=== PATIENT | male | born 1975 | race Caucasian/White ===

== ENCOUNTER 2016-11-30 11:56 | Emergency (ER) | payer MEDICAID, OTHER ==
[~2016-11-30] VITALS: Ht 188 cm; Wt 150.0 kg
[2016-11-30 11:59] VITALS: BP 164/96; PULSE 96; RESP 22; TEMP 97.7; O2SAT 98
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
[2016-11-30] MEDS ORDERED: ONDANSETRON HCL 4 MG/2 ML VIAL IV PUSH ONE (13:00)
[2016-11-30] MEDS ORDERED: MORPHINE SULFATE 4 MG/ML INJ IV PUSH ONE ×2 (13:00→15:00)
--- NOTE | 2016-11-30 13:45 | RADRPT ---
EXAM DATE/TIME: 11/30/2016 13:12 [facility] COMPARISON: No previous studies available for comparison. INDICATIONS : Fall from ladder. Left wrist fracture. MEDICAL HISTORY : None. SURGICAL HISTORY : None. ENCOUNTER: Initial ACUITY: 1 day PAIN SCORE: 9/10 LOCATION: Left wrist FINDINGS: 3 views of the left wrist demonstrate a comminuted displaced fracture of the distal radial metaphysis with dorsal displacement of the distal fragment by approximately 1/2 shaft width. Fracture line exte nds into the radiocarpal joint and the ulnar styloid fragment is also mildly displaced laterally. The re is also a displaced ulnar styloid fracture that is displaced by 4 mm. No carpal bone fracture is i dentified but scapholunate distance measures up to 5 mm. There is soft tissue swelling. No radiopaque foreign body is seen. CONCLUSION: 1. There is a mildly comminuted fracture of the distal radial metaphysis with posterior displacement of the distal fragment. Fracture line extends into the radiocarpal joint. 2. There is a displaced ulnar styloid fracture. 3. Scapholunate distance measures up to 5 mm. This raises suspicion for scapholunate ligament disrupt ion. Alexis Fraga MD on November 30, 2016 at 13:42 Board Certified Radiologist. This report was verified electronically.
--- NOTE | 2016-11-30 13:55 | PD ---
Physical Exam Time Seen by Provider: 13:45 Narrative Care was assumed pending CT and x-ray imaging. This patient fell off a ladder, 4.5 feet off the ground, onto the concrete below. He has pain in his left wrist , left foot and heel, abrasion and contusion to the anterior abdomen. The pain is worst in the left wrist. Pain is an aching pain which is constant and worse with movement. Denies any head injury, neck or back pain, nausea or vomiting, chest pain or shortness of breath. GENERAL: Well-nourished male in no acute distress SKIN: Warm and dry. Abrasions and contusion to the anterior right abdomen. Abrasions to the anterior left knee. HEAD: Atraumatic. Normocephalic. EYES: Pupils equal and round. No scleral icterus. No injection or drainage. ENT: No nasal bleeding or discharge. Mucous membranes pink and moist. NECK: Trachea midline. No JVD. CARDIOVASCULAR: Regular rate and rhythm. No murmur appreciated. RESPIRATORY: No accessory muscle use. Clear to auscultation. Breath sounds equal bilaterally. GASTROINTESTINAL: Skin as noted above. Abdomen is soft. Mild tenderness to palpation to the right lower abdomen region. MUSCULOSKELETAL: Some soft tissue swelling noted to the left wrist. Tender to palpation generalized to left wrist. Range of motion limited. Distal sensation and pulses are intact. Ring on the left fourth finger. Some tenderness to palpation to the lateral left lower heel. NEUROLOGICAL: Awake and alert. No obvious cranial nerve deficits. Motor grossly within normal limits. Normal speech. PSYCHIATRIC: Appropriate mood and affect; insight and judgment normal. Data Data Last Documented VS Vital Signs Date Time Temp Pulse Resp B/P Pulse Ox O2 Delivery O2 Flow Rate FiO2 11/30/16 15:49 98.3 80 16 142/66 95 Room Air Orders Morphine Inj (Morphine Inj) (11/30/16 13:00) Ondansetron Inj (Zofran Inj) (11/30/16 13:00) Complete Blood Count With Diff (11/30/16 12:51) Comprehensive Metabolic Panel (11/30/16 12:51) Wrist, Complete ([id number]) (11/30/16 ) Forearm (2vws) (11/30/16 ) Tibia/Fibula (Ap/Lat) (11/30/16 ) Foot, Complete ([id number]) (11/30/16 ) Ct Abd/Pel W Iv Contrast(Rout) (11/30/16 ) Iv Access Insert/Monitor (11/30/16 12:53) Splint Or Brace Apply/Monitor (11/30/16 13:56) Hydromorphone Pf Inj (Dilaudid Pf Inj) (11/30/16 15:00) Morphine Inj (Morphine Inj) (11/30/16 15:00) Wrist, Limited (Ap&Lat) (11/30/16 ) Ct Wrist W/O Contrast (11/30/16 ) Foot, Heel Only ([id number]) (11/30/16 ) Fiberglass Sugartong Sp Ad Arm (11/30/16 ) Sling Cradle Arm (11/30/16 ) Iohexol 350 Inj (Omnipaque 350 Inj) (11/30/16 16:43) Hydromorphone Pf Inj (Dilaudid Pf Inj) (11/30/16 17:00) Crutches (11/30/16 17:07) Labs Laboratory Tests Test 11/30/16 14:10 White Blood Count 15.4 TH/MM3 Red Blood Count 5.08 MIL/MM3 Hemoglobin 13.8 GM/DL Hematocrit 41.5 % Mean Corpuscular Volume 81.7 FL Mean Corpuscular Hemoglobin 27.1 PG Mean Corpuscular Hemoglobin 33.2 % Concent Red Cell Distribution Width 13.7 % Platelet Count 240 TH/MM3 Mean Platelet Volume 8.7 FL Neutrophils (%) (Auto) 80.1 % Lymphocytes (%) (Auto) 11.7 % Monocytes (%) (Auto) 7.1 % Eosinophils (%) (Auto) 0.8 % Basophils (%) (Auto) 0.3 % Neutrophils # (Auto) 12.3 TH/MM3 Lymphocytes # (Auto) 1.8 TH/MM3 Monocytes # (Auto) 1.1 TH/MM3 Eosinophils # (Auto) 0.1 TH/MM3 Basophils # (Auto) 0.0 TH/MM3 CBC Comment DIFF FINAL Differential Comment Sodium Level 142 MEQ/L Potassium Level 4.0 MEQ/L Chloride Level 106 MEQ/L Carbon Dioxide Level 29.2 MEQ/L Anion Gap 7 MEQ/L Blood Urea Nitrogen 11 MG/DL Creatinine 1.03 MG/DL Estimat Glomerular Filtration 80 ML/MIN Rate Random Glucose 106 MG/DL Calcium Level 8.6 MG/DL Total Bilirubin 0.2 MG/DL Aspartate Amino Transf 25 U/L (AST/SGOT) Alanine Aminotransferase 44 U/L (ALT/SGPT) Alkaline Phosphatase 89 U/L Total Protein 7.7 GM/DL Albumin 3.5 GM/DL [facility] Medical Record Reviewed: Yes Supervised Visit with TOBY: No Interpretation(s) Left wrist x-ray reveals a comminuted fracture of the distal radius with posterior displacement, extending into the radiocarpal joint, ulnar styloid fracture, scapholunate ligament disruption Narrative Course The patient has a ring on his left fourth finger. His wrist is becoming swollen from the fall. Wrist x-ray does confirm a left wrist fracture. I was unable to remove the ring from his left fourth finger using gel. He says that the finger has been too small for his fingers for several years. He is agreeing to have the ring cut off. The ring was cut off successfully. Wrist x- ray reveals a complicated left wrist fracture. Sugar tong splint has been ordered. Discussed with my attending who agrees with plan of care. I discussed results of the x-ray with orthopedist donor recruitment manager Dr. Wells who recommends consult thing the hand surgeon donor recruitment manager regarding the injury. I discussed with a hand surgeon Dr. Sage who reviewed the images and would like a right wrist x-ray to be performed to compare the scapholunate distances. He would also like a dedicated CT of the wrist and he would like the patient to follow-up in his office in 3 days to plan operative services as an outpatient. He would like a sugar tong splint to be placed. 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 The patient required several doses of IV pain medication during his hospital stay. I'm concerned because the patient is having difficulty ambulating secondary to his left lower leg pain. Therefore I offered the patient the possibility of being admitted for observation for intractable pain and physical therapy consultation that he is declining at this time. He will try to rest at home and then see the hand surgeon on Tuesday as discussed. This seems reasonable. He is encouraged to return at any time if he has too much difficulty at home. He is stable for discharge. Diagnosis Primary Impression: Left wrist fracture Qualified Code: S62.102A - Left wrist fracture, closed, initial encounter Additional Impression: Abrasions of multiple sites Referrals: Abdullahi Sage III, MD Additional Instruction: Follow-up with Dr. Sage on Tuesday in 3 days, call his office to make an appointment. Do not remove the splint. Medication as needed. Rest. Crutches as needed. Return for any new or worsening symptoms. Med/Other Pt SpecificInfo: Prescription(s) given, Orthopedic Instructions Scripts Folding Walker/5" Wheels 1 Mis Mis #1 Ea .route As Directed Prov:Beatriz Smiley DO 11/30/16 Ondansetron (Zofran)4 Mg Tab4 Mg PO Q6HR PRN (NAUSEA OR VOMITING) #20 TAB Ref 0 Prov:Beatriz Smiley DO 11/30/16 Oxycodone-Acetaminophen (Percocet)5-325 mg Tab1 Tab PO Q6H PRN (PAIN) #20 TAB Ref 0 Prov:Beatriz Smiley DO 11/30/16 Disposition: 01 DISCHARGE HOME Condition: Stable Piotr Martinez Nov 30, 2016 13:55
--- NOTE | 2016-11-30 14:06 | RADRPT ---
EXAM DATE/TIME: 11/30/2016 13:18 [facility] COMPARISON: No previous studies available for comparison. INDICATIONS : Fall from ladder. Left forearm pain. MEDICAL HISTORY : None. SURGICAL HISTORY : None. ENCOUNTER: Initial ACUITY: 1 day PAIN SCORE: 9/10 LOCATION: Left distal forearm FINDINGS: Two view examination of the left forearm demonstrates a compacted displaced fracture of the distal ra dius extending into the articulating surface of the radiocarpal joint. There is avulsion fracture of the ulnar styloid. Mild separation of the scaphoid and lunate carpal bones are noted. Left radius and ulnar shafts are intact. CONCLUSION: Compacted comminuted fracture of the distal left radius extending into the radiocarpal joint. Possible scapholunate ligament disruption. Avulsion fracture of the ulnar styloid. Lamine Oliva MD on November 30, 2016 at 14:03 Board Certified Radiologist. This report was verified electronically.
--- NOTE | 2016-11-30 14:07 | RADRPT ---
EXAM DATE/TIME: 11/30/2016 13:24 [facility] COMPARISON: No previous studies available for comparison. INDICATIONS : Fall from ladder. Left lower leg pain. MEDICAL HISTORY : None. SURGICAL HISTORY : None. ENCOUNTER: Initial ACUITY: 1 day PAIN SCORE: 5/10 LOCATION: Left distal tib/fib FINDINGS: Two view examination of the left tibia demonstrates no evidence of fracture or dislocation. Bony min eralization is normal. Generalized soft tissue swelling in the calf is noted. CONCLUSION: Soft tissue swelling without evidence of acute fracture or dislocation. Lamine Oliva MD on November 30, 2016 at 14:05 Board Certified Radiologist. This report was verified electronically.
--- NOTE | 2016-11-30 14:08 | RADRPT ---
EXAM DATE/TIME: 11/30/2016 13:33 [facility] COMPARISON: No previous studies available for comparison. INDICATIONS : Fall from ladder. Left foot pain. MEDICAL HISTORY : None. SURGICAL HISTORY : None. ENCOUNTER: Initial ACUITY: 1 day PAIN SCORE: 7/10 LOCATION: Left foot, calcaneous FINDINGS: Three view examination of the left foot demonstrates no soft tissue swelling, dislocation, or fractur e. The tarsal bones appear intact. The interphalangeal and metatarsophalangeal joints are intact. The calcaneus is intact. Bony mineralization is normal. CONCLUSION: No acute disease. Lamine Oliva MD on November 30, 2016 at 14:06 Board Certified Radiologist. This report was verified electronically.
[2016-11-30 14:19] LABS: AUTOMATED NEUTROPHIL # 12.3 TH/MM3 (1.8-7.7); BASOPHIL % 0.3 % (0.0-2.0); EOSINOPHIL # 0.1 TH/MM3 (0-0.4); EOSINOPHIL % 0.8 % (0.0-4.0); HEMATOCRIT 41.5 % (39.0-51.0); HEMO FLAGS DIFF FINAL; LYMPH % 11.7 % (9.0-44.0); LYMPHOCYTE # 1.8 TH/MM3 (1.0-4.8); MEAN CELL VOLUME 81.7 FL (80.0-100.0); MEAN CORPUSCULAR HEMOGLOBIN 27.1 PG (27.0-34.0); MEAN CORPUSCULAR HGB CONC 33.2 % (32.0-36.0); MONO % 7.1 % (0.0-8.0); NEUT % 80.1 % (16.0-70.0); PLATELET COUNT 240 TH/MM3 (150-450); RED BLOOD COUNT 5.08 MIL/MM3 (4.50-5.90); RED CELL DISTRIBUTION WIDTH 13.7 % (11.6-17.2); WHITE BLOOD COUNT 15.4 TH/MM3 (4.0-11.0)
[2016-11-30 14:43] LABS: ALKALINE PHOSPHATASE 89 U/L (45-117); ALT (GPT) 44 U/L (12-78); ANION GAP 7 MEQ/L (5-15); AST (GOT) 25 U/L (15-37); BICARBONATE 29.2 MEQ/L (21.0-32.0); BLOOD UREA NITROGEN 11 MG/DL (7-18); CHLORIDE 106 MEQ/L (98-107); GLOMERULAR FILTRATION RATE 80 ML/MIN (>89); SODIUM (NA) 142 MEQ/L (136-145); TOTAL BILIRUBIN ADULT 0.2 MG/DL (0.2-1.0)
[2016-11-30] MEDS ORDERED: HYDROmorphone HCL PF 1 MG/ML VIAL IV PUSH ONE ×2 (15:00→17:00)
--- NOTE | 2016-11-30 15:38 | RADRPT ---
EXAM DATE/TIME: 11/30/2016 15:17 [facility] COMPARISON: No previous studies available for comparison. INDICATIONS : Fall from ladder. MEDICAL HISTORY : None. SURGICAL HISTORY : None. ENCOUNTER: Initial ACUITY: 1 day PAIN SCORE: 5/10 LOCATION: Left heel FINDINGS: Two view examination of the left heel demonstrates the trabecula to be intact with no evidence of fra cture. There is a normal calcaneal angle. The soft tissues are of normal thickness. CONCLUSION: No acute abnormality is identified. Alexis Fraga MD on November 30, 2016 at 15:36 Board Certified Radiologist. This report was verified electronically.
--- NOTE | 2016-11-30 15:42 | RADRPT ---
EXAM DATE/TIME: 11/30/2016 15:20 [facility] COMPARISON: WRIST LEFT COMPLETE ([id number]), November 30, 2016, 13:12. INDICATIONS : Right wrist comparison for left wrist scapholunate widening. MEDICAL HISTORY : None. SURGICAL HISTORY : None. ENCOUNTER: Initial ACUITY: 1 day PAIN SCORE: 0/10 LOCATION: Right wrist FINDINGS: Two view examination of the right wrist demonstrates soft tissue swelling without dislocation, or fra cture. The joint spaces are maintained. Bony mineralization is normal. The scapholunate distance a ppears within normal range. CONCLUSION: Soft tissue swelling without fracture. Alden Drake MD on November 30, 2016 at 15:37 Board Certified Radiologist. This report was verified electronically.
[2016-11-30 15:49] VITALS: BP 142/66; PULSE 80; RESP 16; TEMP 98.3; O2SAT 95
[2016-11-30] MEDS ORDERED: IOHEXOL 350 MG/ML 10 ML VIAL (for RAD DIAG) IV ONE (16:43)
--- NOTE | 2016-11-30 16:56 | RADRPT ---
EXAM DATE/TIME: 11/30/2016 16:35 [facility] COMPARISON: No previous studies available for comparison. INDICATIONS : Fell on concrete today; left sided pain. IV CONTRAST: 96 cc Omnipaque 350 (iohexol) IV ORAL CONTRAST: No oral contrast ingested. RADIATION DOSE: 16.94 CTDIvol (mGy) MEDICAL HISTORY : None SURGICAL HISTORY : None. ENCOUNTER: Initial ACUITY: 1 day PAIN SCALE: 7/10 LOCATION: Left Abdomen/pelvis TECHNIQUE: Volumetric scanning of the abdomen and pelvis was performed. Using automated exposure control and ad justment of the mA and/or kV according to patient size, radiation dose was kept as low as reasonably achievable to obtain optimal diagnostic quality images. FINDINGS: LOWER LUNGS: The visualized lower lungs are clear. LIVER: The liver is diffusely hypodense. There are no focal lesions. There is no dilation of the biliary tr ee. Post cholecystectomy clips. SPLEEN: Normal size without lesion. PANCREAS: Within normal limits. KIDNEYS: Normal in size and shape. There is no mass, stone or hydronephrosis. ADRENAL GLANDS: Within normal limits. VASCULAR: There is no aortic aneurysm. BOWEL/MESENTERY: The stomach, small bowel, and colon demonstrate no acute abnormality. There is no free intraperitone al air or fluid. ABDOMINAL WALL: Within normal limits. RETROPERITONEUM: There is no lymphadenopathy. BLADDER: No wall thickening or mass. REPRODUCTIVE: Within normal limits. INGUINAL: There is no lymphadenopathy or hernia. MUSCULOSKELETAL: Within normal limits for patient age. CONCLUSION: Hepatic steatosis Status post cholecystectomy No evidence of acute process. Lamine Oliva MD on November 30, 2016 at 16:51 Board Certified Radiologist. This report was verified electronically.
--- NOTE | 2016-11-30 17:00 | RADRPT ---
EXAM DATE/TIME: 11/30/2016 16:46 [facility] COMPARISON: WRIST LEFT COMPLETE ([id number]), November 30, 2016, 13:12. WRIST RIGHT LIMITED(AP & LAT), November 30, 2016, 15:20. INDICATIONS : Fall on concrete; left wrist pain. RADIATION DOSE: ; Reconstructed from previous dataset MEDICAL HISTORY : None SURGICAL HISTORY : None. ENCOUNTER: Initial ACUITY: 1 day PAIN SCALE: 6/10 LOCATION: Left Wrist TECHNIQUE: Volumetric scanning of the wrist was performed. Using automated exposure control and adjustment of t he mA and/or kV according to patient size, radiation dose was kept as low as reasonably achievable to obtain optimal diagnostic quality images. FINDINGS: BONES: Comminuted fracture of distal radius. Many of these fragments are dislocated posteriorly. There is in tra-articular extension. Ulnar styloid fracture also seen. Slight widening of the scapholunate distan ce measures approximately 4 mm. SOFT TISSUES: Extensive soft tissue swelling/contusion. No evidence of mass, organized fluid collection or foreign body. Joints otherwise appear intact. CONCLUSION: 1. Comminuted fracture distal radius with intra-articular extension. 2. Ulnar styloid fracture. 3. Slight widening of the scapholunate distance. Alden Drake MD on November 30, 2016 at 16:55 Board Certified Radiologist. This report was verified electronically.
[2016-11-30] MEDS ORDERED: PERC5TAB12 PO (17:10)
[2016-11-30] MEDS ORDERED: ZOFR4TAB PO (17:10)
[2016-11-30] MEDS ORDERED: MISC-274 (17:29)
[2016-11-30 17:30] VITALS: RESP 18
== END 2016-11-30 18:07 | disposition home or self-care (01) ==
LOC: NEPB 11:56 → NEPE 18:07
DX: S52.502A Unspecified fracture of the lower end of left radius, initial encounter for closed fracture (principal); M79.672 Pain in left foot; S80.212A Abrasion, left knee, initial encounter; W11.XXXA Fall on and from ladder, initial encounter; Y99.0 Civilian activity done for income or pay
CPT/HCPCS: 73090; 73100; 73110; 73200; 73590; 73630; 73650; 74177; 80053; 85025; 96374; 96375; 96376; 99284; E0113; J1170; J2270; J2405; Q9967

== ENCOUNTER 2016-12-18 15:21 | Emergency (ER) | payer MEDICAID, OTHER ==
[~2016-12-18] VITALS: Ht 188 cm; Wt 176.0 kg
[~2016-12-18 15:21] MED LIST: MISC-274; PERC5TAB12 PO; ZOFR4TAB PO
[2016-12-18 15:30] VITALS: BP 156/109; PULSE 88; RESP 17; TEMP 97.9; O2SAT 96
[2016-12-18] MEDS ORDERED: SULFAMETHOXAZOLE-TRIMETHOPRIM DS 800-160 MG TAB PO ONE (16:15)
[2016-12-18] MEDS ORDERED: DOXYCYCLINE HYCLATE 100 MG CAP PO ONE (16:15)
--- NOTE | 2016-12-18 16:23 | PD ---
HPI Chief Complaint: Wound/Suture/Staple Re-Check Time Seen by Provider: 16:00 Travel History International Travel<30 days: No Contact w/Intl Traveler<30days: No Traveled to known affect area: No History of Present Illness HPI 41-year-old male presents to emergency department status post open reduction and fixation of the left wrist status post Worker's Comp. injury to the left wrist which occurred on 11/30/2016. Patient underwent surgery with Dr. Acuña 3 days prior to this visit. Patient came in because he is concerned about possible infection as he's had some drainage from around the metal fixator which is present, and ongoing swelling of the hand. Patient has had no fevers or chills. He is not taking any antibiotics currently. He is currently taking Percocet and ibuprofen. He has no other real complaints other than a sign of bowel movement since the surgery. He denies abdominal pain. He has no known drug allergies. PFSH Past Medical History Diminished Hearing: No Hypertension: Yes Tetanus Vaccination: < 5 Years Influenza Vaccination: No ?: Not Past Surgical History Cholecystectomy: Yes Social History Alcohol Use: No Tobacco Use: No Substance Use: No Allergies-Medications (Allergen,Severity, Reaction): Coded Allergies: No Known Allergies (Unverified , 12/18/16) Reported Meds & Prescriptions Reported Meds & Active Scripts Active Folding Walker/5" Wheels (Device) 1 Mis Mis 1 Ea .ROUTE DIRECTED Zofran (Ondansetron HCl) 4 Mg Tab 4 Mg PO Q6HR PRN Percocet (Oxycodone-Acetaminophen) 5-325 mg Tab 1 Tab PO Q6H PRN Review of Systems Except as stated in HPI: all other systems reviewed are Neg General / Constitutional: No: Fever Eyes: No: Visual changes HENT: No: Headaches Cardiovascular: No: Chest Pain or Discomfort Respiratory: No: Shortness of Breath Gastrointestinal: No: Abdominal Pain Genitourinary: No: Dysuria Musculoskeletal: No: Pain Skin: No Rash Neurologic: No: Weakness Psychiatric: No: Depression Endocrine: No: Polydipsia Hematologic/Lymphatic: No: Easy Bruising Physical Exam Narrative GENERAL: Patient appears in no acute distress. SKIN: Warm and dry. Normal color. Normal turgor. The dressing around the left forearm and wrist are removed down to the Xeroform gauze surrounding the external fixator as well as the vision to the volar forearm. There is no sign of cellulitis or induration or drainage at this time. There is no erythema or warmth. There is no streaking or lymphangitis. HEAD: Atraumatic. Normocephalic. EYES: Pupils equal and round. No scleral icterus. No injection or drainage. ENT: No nasal bleeding or discharge. Mucous membranes pink and moist. Pharynx is clear. NECK: Trachea midline. Neck is supple nontender. CARDIOVASCULAR: Regular rate and rhythm. RESPIRATORY: No accessory muscle use. Clear to auscultation. Breath sounds equal bilaterally. GASTROINTESTINAL: Abdomen soft, non-tender, nondistended. Hepatic and splenic margins not palpable. Normal bowel sounds are present throughout all quadrants. MUSCULOSKELETAL: Extremities without clubbing, cyanosis, or edema. Left hand is swollen consistent with patient's injury and surgical history. Patient has normal neurovascular exam of the left hand, and is able to make a fist without difficulty. NEUROLOGICAL: Awake and alert. No obvious cranial nerve deficits. Motor grossly within normal limits. Five out of 5 muscle strength in the arms and legs. Normal speech. PSYCHIATRIC: Appropriate mood and affect; insight and judgment normal. Data Data Last Documented VS Vital Signs Date Time Temp Pulse Resp B/P Pulse Ox O2 Delivery O2 Flow Rate FiO2 12/18/16 15:30 97.9 88 17 156/109 96 Orders Doxycycline (Vibramycin) (12/18/16 16:15) Sulfamet-Trimeth Ds 800-160 Mg (Bactrim (12/18/16 16:15) MDM Medical Decision Making Medical Screen Exam Complete: Yes Emergency Medical Condition: Yes Medical Record Reviewed: Yes Differential Diagnosis Workplace injury. Left wrist fracture. Recent orthopedic surgery to the left wrist and forearm. Question cellulitis. Narrative Course Patient is medically stable at time of exam. Call was placed to Dr. Acuña's office and I spoke with Yusuf Paige PAC covering for call. The patient was discussed and he recommended place the patient on Bactrim and doxycycline for the next 2 weeks until the patient is seen in follow-up on December 31 as scheduled. The dressing and splint was replaced to the patient's left wrist and forearm as previous. This is to remain in place until seen in follow-up. Patient is continue his Percocet and ibuprofen as needed. I recommended the patient start using a stool softener such as MiraLAX for his constipation. Patient should follow-up with Dr. Acuña's office as currently scheduled or return to emergency department as needed when necessary. Diagnosis Primary Impression: Left wrist fracture Qualified Code: S62.102D - Left wrist fracture, with routine healing, subsequent encounter Patient Instructions: Constipation (ED), General Instructions, How to Use a Sling (GEN), Splint Care (DC) Additional Instructions: Patient is medically stable at time of exam. Call was placed to Dr. Acuña's office and I spoke with Yusuf Paige PAC covering for call. The patient was discussed and he recommended place the patient on Bactrim and doxycycline for the next 2 weeks until the patient is seen in follow-up on December 31 as scheduled. The dressing and splint was replaced to the patient's left wrist and forearm as previous. This is to remain in place until seen in follow-up. Patient is continue his Percocet and ibuprofen as needed. I recommended the patient start using a stool softener such as MiraLAX for his constipation. Patient should follow-up with Dr. Acuña's office as currently scheduled or return to emergency department as needed when necessary. Med/Other Pt SpecificInfo: Prescription(s) given Disposition: 01 DISCHARGE HOME Condition: Stable Misha Green Dec 18, 2016 16:23
[2016-12-18] MEDS ORDERED: BACT800T5 PO (16:24)
[2016-12-18] MEDS ORDERED: DOXY100C PO (16:24)
[2016-12-18] MEDS ORDERED: DOXYCYCLINE HYCLATE 100 MG TAB PO ONE (16:45)
== END 2016-12-18 16:58 | disposition home or self-care (01) ==
LOC: PHEFT 15:21
DX: S62.102A Fracture of unspecified carpal bone, left wrist, initial encounter for closed fracture (principal); X58.XXXA Exposure to other specified factors, initial encounter; Y99.0 Civilian activity done for income or pay
CPT/HCPCS: 99282

== ENCOUNTER 2017-01-15 14:42 | Emergency (ER) | payer MEDICAID, OTHER ==
[~2017-01-15] VITALS: Ht 188 cm; Wt 172.0 kg
[~2017-01-15 14:42] MED LIST changes: +BACT800T5 PO; +DOXY100C PO
[2017-01-15 14:46] VITALS: BP 176/134; PULSE 92; RESP 17; TEMP 98.6; O2SAT 95
[2017-01-15] MEDS ORDERED: AMLO10TA2 PO (15:05)
--- NOTE | 2017-01-15 15:12 | PD ---
HPI Chief Complaint: Pain: Acute or Chronic Time Seen by Provider: 14:57 Travel History International Travel<30 days: No Contact w/Intl Traveler<30days: No Traveled to known affect area: No History of Present Illness HPI 41-year-old male here with complaint of left wrist pain and hand swelling. Patient had comminuted fractures of the left wrist and was status post ORIF/ external fixator on 12/[address] Acuña. Patient states he he is scheduled for definitive surgery 6 weeks post ex-fix. The last 3 weeks he has noticed increasing pain in the wrist and swelling in the hand. Patient has been immobilized with ex-fix and volar splint. He has not noticed any redness, discharge from the pin sites. No palpable cords. PFSH Past Medical History Diminished Hearing: No Hypertension: Yes Tetanus Vaccination: < 5 Years Influenza Vaccination: No ?: Not Past Surgical History Cholecystectomy: Yes Social History Alcohol Use: No Tobacco Use: No Substance Use: No Allergies-Medications (Allergen,Severity, Reaction): Coded Allergies: No Known Allergies (Unverified , 01/15/17) Reported Meds & Prescriptions Reported Meds & Active Scripts Active Reported Amlodipine (Amlodipine Besylate) 10 Mg Tab 10 Mg PO DAILY Review of Systems Except as stated in HPI: all other systems reviewed are Neg Physical Exam Narrative GENERAL: Obese male in no acute distress SKIN: Focused skin assessment warm/dry. HEAD: Normocephalic. EYES: No scleral icterus. No injection or drainage. ENT: Mucous membranes pink and moist. NECK: Supple CARDIOVASCULAR: Regular rate and rhythm. RESPIRATORY: No accessory muscle use. GASTROINTESTINAL: Obese MUSCULOSKELETAL: Left upper extremity and volar wrist splint. This was taken down. External fixator pin sites are clean without erythema, discharge. Patient has swelling from the elbow distally. This is diffuse without focal swelling, erythema, fluctuance. Good distal sensation and pulses. NEUROLOGICAL: Awake and alert. Normal speech. PSYCHIATRIC: Appropriate mood and affect; insight and judgment normal. Data Data Last Documented VS Vital Signs Date Time Temp Pulse Resp B/P Pulse Ox O2 Delivery O2 Flow Rate FiO2 01/15/17 14:46 98.6 92 17 176/134 95 Orders Us Arm Venous Doppler (01/15/17 ) Pin Care W/ Saline & Peroxide [email or web address] (01/15/17 15:04) Support Splint (01/15/17 15:04) Wrist, Limited (Ap&Lat) (01/15/17 ) MDM Medical Decision Making Medical Screen Exam Complete: Yes Emergency Medical Condition: Yes Medical Record Reviewed: Yes Differential Diagnosis 41-year-old male status post ORIF and external fixator of the left wrist on here with increasing pain and swelling. Differential includes postoperative pain, fracture, DVT. Narrative Course X-ray of the left wrist and left upper extremity ultrasound was ordered and are pending at time of dictation. Patient signed out to oncoming provider waiting results of same for hopeful disposition home. Saima Castano MD Jan 15, 2017 15:12
[2017-01-15] MEDS ORDERED: IBUP800T23 PO (16:35)
--- NOTE | 2017-01-15 16:35 | PD ---
Data Data Last Documented VS Vital Signs Date Time Temp Pulse Resp B/P Pulse Ox O2 Delivery O2 Flow Rate FiO2 01/15/17 14:46 98.6 92 17 176/134 95 Orders Us Arm Venous Doppler (01/15/17 ) Pin Care W/ Saline & Peroxide [email or web address] (01/15/17 15:04) Support Splint (01/15/17 15:04) Wrist, Limited (Ap&Lat) (01/15/17 ) Fiberglass Splint Forearm Adul (01/15/17 ) MDM Supervised Visit with TOBY: Yes Interpretation(s) X-ray left wrist: External fixation hardware is present in the lateral hand in the midshaft of the radius. Near-anatomic alignment of the fractures. Displaced ulnar styloid fracture. Left upper extremity ultrasound: Negative for DVT Narrative Course 41-year-old man presents to the emergency department by evaluation of the right wrist swelling. He is not a month out from external fixation and plate fixation of the distal radius fracture. Patient was evaluated by Dr. Santos. Ultrasound was ordered to rule out DVT. X-ray was ordered. Patient denies any significant increase in pain. He is back to work. He tried to keep the wrist elevated. On exam: There is a little bit of swelling about the distal wrist. There is no erythema redness warmth or evidence of infection. Pin sites are clean. No drainage. Diagnosis Primary Impression: Left wrist fracture Qualified Code: S62.102D - Left wrist fracture, with routine healing, subsequent encounter Additional Impression: Swelling of joint, wrist, left Additional Instruction: Take ibuprofen as prescribed. Keep wrist elevated. Follow-up with Dr. Zamudio scheduled. Return to the emergency department for any new or worsening symptoms. Med/Other Pt SpecificInfo: Prescription(s) given Scripts Ibuprofen 800 Mg Ish732 Mg PO Q8H PRN (Pain/Inflammation) #60 TAB Ref 0 Prov:Clay Boyle MD 01/15/17 Disposition: 01 DISCHARGE HOME Condition: Stable Clay Boyle MD Jan 15, 2017 16:35
--- NOTE | 2017-01-15 16:38 | RADHPO ---
EXAM DATE/TIME: 01/15/2017 15:49 [facility] COMPARISON: No previous studies available for comparison. INDICATIONS : Left arm pain. MEDICAL HISTORY : Hypertension. SURGICAL HISTORY : Left wrist surgery with pins November 2016. ENCOUNTER: Initial ACUITY: 3 days PAIN SCORE: 5/10 LOCATION: Left arm FINDINGS: There is spontaneous flow documented in the brachial, basilic, cephalic, axillary, and subclavian vei ns. The vessels are compressible and augmentation response is documented. No filling defects are se en. The flow is phasic with respiration. Direction of flow in the jugular vein is caudal. CONCLUSION: Negative for deep venous thrombosis. Jacky Mckeon MD on January 15, 2017 at 16:35 Board Certified Radiologist. This report was verified electronically.
--- NOTE | 2017-01-15 16:45 | RADHPO ---
EXAM DATE/TIME: 01/15/2017 16:15 [facility] COMPARISON: CT WRIST LEFT W/O CONTRAST, November 30, 2016, 16:46. WRIST LEFT COMPLETE ([id number]), November 30, 2016, 13 :12. WRIST RIGHT LIMITED(AP & LAT), November 30, 2016, 15:20. INDICATIONS : Left wrist pain for one week. No recent injury after surgery. Patient states he had surgery on his wr ist on 12/14/16. MEDICAL HISTORY : Left wrist fracture. SURGICAL HISTORY : Left wrist. ENCOUNTER: Initial ACUITY: 1 week PAIN SCORE: 6/10 LOCATION: Left wrist. FINDINGS: External fixation hardware is present in the lateral hand and midshaft of the radius. There is a vol ar plate in the distal radius with intact hardware and intact screws. There is some displacement of the fracture fragments, but overall, the alignment of the distal radial fractures is near-anatomic. There is a displaced oblique fracture of the ulnar styloid. Diffuse osteopenia of the carpus. CONCLUSION: Internal and external fixation hardware appears intact. Near-anatomic alignment of the comminuted fr actures of the distal radius with operating talus and with persistent fracture lucencies. Displaced ulnar styloid fracture. Jacky Mckeon MD on January 15, 2017 at 16:41 Board Certified Radiologist. This report was verified electronically.
== END 2017-01-15 16:52 | disposition home or self-care (01) ==
LOC: PHED 14:42
DX: S62.102D Fracture of unspecified carpal bone, left wrist, subsequent encounter for fracture with routine healing (principal); I10 Essential (primary) hypertension; X58.XXXD Exposure to other specified factors, subsequent encounter
CPT/HCPCS: 29125; 73100; 93971